=== PATIENT | female | born 1965 | race Caucasian/White ===

== ENCOUNTER 2016-11-17 15:29 | Emergency (ER) | payer OTHER ==
[2016-11-17] MEDS ORDERED: IOPAMIDOL 370 (76%) 100 ML VIAL IV ONE (15:30)
[2016-11-17 16:11] LABS: ABSOLUTE NEUTROPHIL COUNT 3.5 K/mm3 (1.8-7.7); BASO % 0.6 % (0.2-1.0); EOS # 0.2 (0.0-0.5); EOS % 3.9 % (0.9-2.9); HEMOGLOBIN 12.6 gm/l (12.0-16.0); IMM NEUT% 0.2 % (0-1); LYMPH # 1.9 (1.0-4.8); LYMPH % 30.9 % (15-45); MEAN CELL VOLUME 87.6 fl (81.0-99.0); MEAN CORPUSCULAR HEMOGLOBIN 28.3 pg (27.0-31.0); MEAN CORPUSCULAR HGB CONC 32.3 g/dl (33.0-37.0); MEAN PLATELET VOLUME 10.4 fl (7.4-10.4); MONO # 0.5 (0.0-0.8); MONO % 7.6 % (4-12); NEUT % 56.8 % (43-75); PLATELET COUNT 280 K/mm3 (130-400); RED CELL DISTRIBUTION WIDTH 12.5 % (11.5-14.5)
[2016-11-17 16:27] LABS: TROPONIN I < 0.01 ng/ml (0.0-0.06)
[2016-11-17 16:28] LABS: ALB/GLOB RATIO 1.4 (>1.0); ALBUMIN 4.1 gm/dL (3.5-5.7); CALCIUM 9.1 mg/dL (8.6-10.3)
[2016-11-17 16:30] LABS: CKMB ISOENZYME 1.9 ng/ml (0.6-6.3)
--- NOTE | 2016-11-17 18:22 | US ---
EXAMINATION: Limited gallbladder ultrasound examination was performed. CLINICAL INDICATION: Right upper quadrant pain. COMPARISON: None FINDINGS: Gallbladder: 7.3 cm in length. Cholelithiasis:None Gallbladder wall thickness: 3 millimeters. Pericholecystic fluid: A small slip of fluid is noted. Common bile duct:Not dilated and measures 6 millimeters. Sonographic Mcneil's sign: None elicited. IMPRESSION: No sonographic changes currently suggestive of cholelithiasis or biliary obstruction. There is a small slip of fluid adjacent to the gallbladder. This finding is nonspecific. The findings were uploaded to the electronic medical record for review at approximately 6:23 PM 11/17/2016
--- NOTE | 2016-11-17 19:21 | CT ---
EXAMINATION: Contrast enhanced CT scan of the abdomen and pelvis. CLINICAL INDICATION: Epigastric pain on and off for 6 months. Left-sided chest pain rating to left shoulder. COMPARISON: Prior CT scan dated 02/04/2009. TECHNIQUE: Oral contrast: None Following uneventful administration of 100 mL of Isovue 370, intravenously axial images were acquired from just above the domes of the diaphragm to the iliac crest. A CT scan of the pelvis was also obtained from the iliac crest to the initial tuberosities. Stacked axial, sagittal, and coronal images were reviewed. Findings: Abdomen CT: (Contrast-enhanced): The lung bases are clear and are without mass or pleural effusion. The liver is unremarkable. There is pericholecystic fluid. No gross gallbladder distention is identified. The gallbladder wall enhances normally. There is no hepatic biliary dilatation. The spleen size and attenuation are within normal limits. The pancreas is normal in size and contours. No inflammatory stranding is identified. The pancreatic duct is unremarkable. The adrenals are unremarkable. The kidneys are without mass or hydronephrosis. No nephrolithiasis is identified. The abdominal aorta unremarkable. There is no retroperitoneal adenopathy identified. The stomach is unremarkable. The visualized segments of small and large bowel are within normal limits. The osseous structures exhibit no displaced fracture. No lytic or blastic lesions are identified. Pelvic CT: (Contrast -enhanced): The distal ureters and bladder are unremarkable. Uterus is retroverted. There are no adnexal masses. No adenopathy is identified. The distal abdominal aorta and iliac vessels are within normal limits. The visualized segments of small and large bowel are unremarkable. No pericecal plantar stranding is identified. Prominent mesenteric lymph nodes are noted the right lower quadrant. Mild spondylosis changes lumbar spine are noted greatest at L5-S1. The overlying soft tissues are unremarkable. IMPRESSION: 1. Pericholecystic fluid/edema. Findings may reflect sequela of cholecystitis. Currently no abnormal gallbladder wall enhancement or irregularity is identified. 2. Prominent mesenteric lymph nodes findings may reflect sequela of mesenteric adenitis. 3. No free fluid is identified within the pelvis. 4. Spondylosis changes L5-S1. Findings were discussed with Dr. Kumar at 7:13 PM 11/17/2016
== END 2016-11-17 20:13 | disposition home or self-care (01) ==
LOC: ED 15:29
DX: R10.13 Epigastric pain (principal); R07.9 Chest pain, unspecified
CPT/HCPCS: 83690; 85025; 82550; 82553; 80053; 84484; 74177; 76705; 99284 ×2; Q9967